=== PATIENT | male | born 1955 | race Caucasian/White ===

== ENCOUNTER 2017-01-03 13:51 | Emergency (ER) | payer OTHER ==
[~2017-01-03] VITALS: Ht 165.1 cm; Wt 65.0 kg
[~2017-01-03 13:51] MED LIST: ECOT325T PO; ENAL5TAB PO; ISOS20TA38 PO; METO50TA PO; NITR.3 SL; PRAV80TA PO
[2017-01-03 14:00] VITALS: BP 99/64; PULSE 83; RESP 18; TEMP 99.4; O2SAT 96
[2017-01-03] MEDS ORDERED: CODE30TA2 PO (14:28)
[2017-01-03] MEDS ORDERED: TRAZ50TA12 PO (14:28)
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
[2017-01-03] MEDS ORDERED: ISOS20TA PO (14:49)
[2017-01-03] MEDS ORDERED: PRAV40TA2 PO (14:49)
[2017-01-03] MEDS ORDERED: OMEP20TA PO (14:49)
[2017-01-03] MEDS ORDERED: BUSP30TA PO (14:49)
[2017-01-03] MEDS ORDERED: DULO1CAP3 PO (14:49)
[2017-01-03] MEDS ORDERED: METO100T9 PO (14:49)
[2017-01-03 15:54] LABS: AUTOMATED NEUTROPHIL # 4.6 TH/MM3 (1.8-7.7); BASOPHIL # 0.1 TH/MM3 (0-0.2); EOSINOPHIL # 0.1 TH/MM3 (0-0.4); EOSINOPHIL % 1.5 % (0.0-4.0); HEMATOCRIT 41.8 % (39.0-51.0); HEMO FLAGS DIFF FINAL; LYMPH % 33.2 % (9.0-44.0); LYMPHOCYTE # 2.6 TH/MM3 (1.0-4.8); MEAN CELL VOLUME 100.1 FL (80.0-100.0); MEAN CORPUSCULAR HEMOGLOBIN 33.4 PG (27.0-34.0); MEAN CORPUSCULAR HGB CONC 33.3 % (32.0-36.0); MONO % 5.7 % (0.0-8.0); NEUT % 58.6 % (16.0-70.0); PLATELET COUNT 244 TH/MM3 (150-450); RED BLOOD COUNT 4.17 MIL/MM3 (4.50-5.90); RED CELL DISTRIBUTION WIDTH 13.7 % (11.6-17.2); WHITE BLOOD COUNT 7.9 TH/MM3 (4.0-11.0)
[2017-01-03 16:08] LABS: AMPHETAMINE, URINE NEG (NEG); BARBITURATES, URINE NEG (NEG); COCAINE, URINE NEG (NEG)
[2017-01-03 16:25] LABS: ALT (GPT) 22 U/L (12-78); ANION GAP 8 MEQ/L (5-15); AST (GOT) 20 U/L (15-37); BICARBONATE 28.3 MEQ/L (21.0-32.0); BLOOD UREA NITROGEN 10 MG/DL (7-18); CHLORIDE 106 MEQ/L (98-107); GLOMERULAR FILTRATION RATE 74 ML/MIN (>89); POTASSIUM 4.8 MEQ/L (3.5-5.1); SODIUM (NA) 142 MEQ/L (136-145)
[2017-01-03 16:27] LABS: ALKALINE PHOSPHATASE 77 U/L (45-117); TOTAL BILIRUBIN ADULT 0.3 MG/DL (0.2-1.0)
[2017-01-03] MEDS ORDERED: LORazepam 2 MG/ML VIAL IV PUSH PRN ×4 (17:45)
[2017-01-03] MEDS ORDERED: LORazepam 2 MG TAB PO PRN (17:45)
[2017-01-03] MEDS ORDERED: FLUMAZENIL 0.5 MG/5 ML VIAL IV PUSH PRN (17:45)
[2017-01-03] MEDS ORDERED: LORazepam 1 MG TAB PO PRN (17:45)
[2017-01-03 18:00] VITALS: BP 117/59; PULSE 94; RESP 18
[2017-01-03] MEDS ORDERED: busPIRone HCL 10 MG TAB PO ONE (19:30)
[2017-01-03] MEDS ORDERED: traZODone HCL 50 MG TAB PO ONE (19:30)
[2017-01-03 21:47] VITALS: BP 100/58; PULSE 93; RESP 17; O2SAT 98
[2017-01-04 02:19] VITALS: BP 106/59; PULSE 79; RESP 18; O2SAT 99
== END 2017-01-04 03:58 ==
LOC: NEPJ 13:51
DX: Z02.89 Encounter for other administrative examinations (principal); R45.850 Homicidal ideations; F10.120 Alcohol abuse with intoxication, uncomplicated; I25.10 Atherosclerotic heart disease of native coronary artery without angina pectoris; I10 Essential (primary) hypertension; E78.5 Hyperlipidemia, unspecified; Z72.0 Tobacco use; Z86.59 Personal history of other mental and behavioral disorders; Z87.39 Personal history of other diseases of the musculoskeletal system and connective tissue; Z87.09 Personal history of other diseases of the respiratory system
CPT/HCPCS: 80053; 80307; 85025; 96372; 99285; J2060

== ENCOUNTER 2017-01-04 13:26 | Emergency (ER) | payer OTHER ==
[~2017-01-04 13:26] MED LIST changes: +BUSP30TA PO; +CODE30TA2 PO; +DULO1CAP3 PO; -ECOT325T PO; +ISOS20TA PO; -ISOS20TA38 PO; +METO100T9 PO; -METO50TA PO; -NITR.3 SL; +OMEP20TA PO; +PRAV40TA2 PO; -PRAV80TA PO; +TRAZ50TA12 PO
[2017-01-04 14:10] VITALS: BP 150/70; PULSE 90; RESP 18; TEMP 98.9; O2SAT 96
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
== END 2017-01-04 17:04 | disposition home or self-care (01) ==
LOC: NEPJ 13:26
DX: F10.14 Alcohol abuse with alcohol-induced mood disorder (principal); R45.850 Homicidal ideations; I25.10 Atherosclerotic heart disease of native coronary artery without angina pectoris; I10 Essential (primary) hypertension; E78.00 Pure hypercholesterolemia, unspecified; F17.200 Nicotine dependence, unspecified, uncomplicated; Z95.810 Presence of automatic (implantable) cardiac defibrillator; Z86.59 Personal history of other mental and behavioral disorders; Z86.79 Personal history of other diseases of the circulatory system; Z87.39 Personal history of other diseases of the musculoskeletal system and connective tissue; Z87.09 Personal history of other diseases of the respiratory system
CPT/HCPCS: 99282